=== PATIENT | female | born 1990 | race Caucasian/White ===

== ENCOUNTER 2025-02-06 10:00 | Emergency (ER) | payer MEDICAID, SELFPAY ==
[2025-02-06 10:06] VITALS: BP 117/82; PULSE 108; RESP 18; TEMP 37.2; O2SAT 96
--- NOTE | 2025-02-06 10:18 | XR_ITS ---
Examination: CT abdomen and pelvis without contrast. Coronal 3-D reconstructions. Sagittal 2-D reconstructions. Date and time of exam:February 06, 2025 1239 hours, comparison February 26, 2017 INDICATIONS: Onset generalized abdominal pain and diarrhea beginning 2 days ago CTDI: vol (mGy): 11 DLP: (mGycm): 603 Technique: Axial images of the abdomen have been obtained, 3 mm slice thickness Intravenous contrast material has not been administered. Low dose protocols were performed. One or more of the following dose reduction techniques were used; automated exposure control, adjustment of the mA and/or KV according to patient size, use of iterative reconstruction technique. Findings: Atelectasis in the lower lung zones No visualized liver or splenic lesion, mild bilateral hepatosplenomegaly Gallstones no gallbladder wall thickening No pancreatic mass No renal or ureteral calculi, no hydronephrosis No bowel obstruction No pericecal inflammatory change No diverticulitis Anteverted uterus No adnexal mass Contracted urinary bladder Mildly fluid distended colon IMPRESSION: Cholelithiasis, negative for cholecystitis Mild diffuse nonspecific colitis pattern
--- NOTE | 2025-02-06 10:18 | XR_ITS ---
Examination: Pelvic ultrasound, transabdominal, complete Technique: Transabdominal ultrasound of the pelvis performed using grayscale imaging Date and time of exam: February, 1125 hours INDICATIONS: Severe pelvic pain beginning 2 days ago FINDINGS: Uterus 8.6 cm endometrial stripe 1.7 cm No uterine mass or intrauterine gestation Right ovary 5.5 cm arterial flow small follicles, the largest 17 mm 5 mm calcification Left ovary 2.9 cm arterial flow IMPRESSION: No uterine mass or intrauterine gestation
--- NOTE | 2025-02-06 10:19 | PD.EDRME ---
Rapid Medical Screening Exam RME Arrival date/time: 02/06/25 10:00 34-year-old female presents to the emergency department today for complaints of pelvic pain and lower abdominal pain Chief Complaint: Abdominal Pain Vital signs: Vital Signs Temperature 99.0 F 02/06/25 10:06 Pulse Rate 108 H 02/06/25 10:06 Respiratory Rate 18 02/06/25 10:06 Blood Pressure 117/82 02/06/25 10:06 Pulse Oximetry (%) 96 02/06/25 10:06 Oxygen Delivery Method Room Air 02/06/25 10:06
[2025-02-06 10:30] LABS: Basophils # (Auto) 0.0 Thou/mm3 (0.0-0.2); Basophils % (Auto) 0 % (0-2.5); Eosinophils # (Auto) 0.0 Thou/mm3 (0.0-0.5); Eosinophils % (Auto) 0 % (0-10); Hematocrit 34.1 % (36.0-46.0); Hemoglobin 10.9 g/dL (12.0-16.0); Immature Granulocytes Auto 0.05 Thou/mm3 (0.00-0.00); Lymphocytes # (Auto) 1.2 Thou/mm3 (1.0-4.8); Lymphocytes % (Auto) 12 % (10-50); Mean Corpuscular HGB Conc 32.0 g/dl (31.0-37.0); Mean Corpuscular Hemoglobin 23.5 pg (25.0-35.0); Mean Corpuscular Volume 74 fL (80-100); Monocytes # (Auto) 0.6 Thou/mm3 (0.0-0.8); Monocytes % (Auto) 6 % (0-12); Neutrophils # (Auto) 8.0 Thou/mm3 (1.8-7.7); Neutrophils % (Auto) 81 % (37-80); Nucleated Red Blood Cell # 0.00 Thou/mm3 (0.00-0.00); Nucleated Red Blood Cell % 0 /100 WBC (0); Platelet Count 245 Thou/mm3 (140-440); RDW Standard Deviation 42.4 fL (36.4-46.3); Red Blood Count 4.63 Miln/mm3 (4.00-5.20); White Blood Count 9.9 Thou/mm3 (3.6-11.0)
[2025-02-06 10:49] LABS: Alanine Aminotransferase 18 U/L (10-49); Albumin, Serum 4.2 gm/dL (3.5-5.0); Albumin/Globulin Ratio 1.5 (1.2-2.2); Alkaline Phosphatase 61 U/L (46-116); Anion Gap 9 (7-16); Aspartate Amino Transferase 14 U/L (0-34); BUN/Creatinine Ratio 11 Ratio (12-20); Bilirubin,Total 1.1 mg/dL (0.3-1.2); Blood Urea Nitrogen 8 mg/dL (9-23); Calcium 8.9 mg/dL (8.3-10.6); Calcium (Corrected) 8.9 mg/dL (8.5-10.1); Carbon Dioxide 23.7 mMol/L (20.0-31.0); Chloride 104 mMol/L (98-107); Creatinine (Component) 0.7 mg/dL (0.6-1.3); Globulin 2.8 gm/dL (2.3-3.5); Glucose 105 mg/dL (74-106); Lipase 24 U/L (12-53); Osmolality,Calculated 272 (275-295); Potassium 3.8 mMol/L (3.4-5.1); Sodium 137 mMol/L (136-145); Total Protein 7.0 gm/dL (5.7-8.2); eGFR > 60 See Note
[2025-02-06 10:57] LABS: Collection Type, Urine Clean Catch
[2025-02-06 11:03] LABS: Bacteria,Urine Rare; Bilirubin,Urine Negative (Negative); Blood,Urine Negative (Negative); Clarity,Urine Turbid (Clear/Hazy); Color,Urine Yellow (Lt Yel-Yel); Culture Indicated,Urine Not Indicated; Glucose, Urine Negative (Negative); Ketones,Urine 2+ (Negative); Leukocyte Esterase,Urine Negative (Negative); Nitrite,Urine Negative (Negative); PH,Urine 6.0 (5.0-7.0); Protein,Urine 1+ (Neg - Trace); RBC,Urine 2 /hpf (0-3); Specific Gravity,Urine 1.021 (1.001-1.035); Squamous Epithelial Cell,Urine 4 /hpf (0-5); Urobilinogen,Urine Negative mg/dL (0.0-1.0); WBC,Urine 3 /hpf (0-5)
[2025-02-06 11:50] LABS: HCG Qualitative,Urine Negative
--- NOTE | 2025-02-06 14:42 | EDNOTE_ITS ---
ED Abdominal Pain RME/HPI General Chief Complaint: Abdominal Pain Stated complaint: ABD PAIN Time seen by provider: 02/06/25 10:48 Arrival date/time: 02/06/25 10:00 RME / HPI RME / HPI narrative: 34-year-old female presents to the emergency department today for complaints of pelvic pain and lower abdominal pain. Pain is more on the right upper quadrant, has been going for the last several days, described as crampy, severity moderate . Patient denies any fever denies any vomiting diarrhea constipation. Denies any other complaints no medication was taken prior to ER visit. Related Data Previous Rx's ?Medication ?Instructions ?Recorded ferrous sulfate 325 mg (65 mg 325 mg PO BID 60 days #1 20 tabs 01/06/22 iron) tablet nicotine 14 mg/24 hr daily 14 mg top QDAY 60 days #60 ea 01/06/22 transdermal patch dicyclomine 20 mg tablet 20 mg PO QID PRN abdominal p ain 02/06/25 #30 tabs famotidine 20 mg tablet (Pepcid) 20 mg PO BID #20 tabs 02/06/25 Allergies Allergy/AdvReac Type Severity Reaction Status Date / Time fluconazole Allergy Severe Hives Verified 02/06/25 10:02 Review of Systems Review of Systems Narrative Review of Systems: Review of system reviewed and within normal limits except mentioned in HPI ED Exam Narrative Physical exam: VITAL SIGNS: Reviewed. GENERAL APPEARANCE: Alert and interactive, follows commands, no acute distress, HEAD AND FACE: Non-traumatic. ENT: PERRL, pink conjunctivitis, eyelid no trauma, Mucous membrane moist. NECK: Supple, nontender, no nuchal rigidity. CHEST: No tenderness, no crepitus, no paradoxical movement, no retractions. LUNGS: Clear, well ventilated, symmetric, no rales, no wheezing, no ronchi, no stridor, good breath sounds bilaterally. HEART: Regular rate, regular rhythm, no murmur, no gallops. ABDOMEN: Soft, positive bowel sounds, nondistended, no guarding, right upper quadrant tenderness, no rebound, no masses, RECTAL: Deferred. GENITAL: Deferred. NEUROLOGICAL: Gross motor function intact sensory function intact, Appropriate for age. MUSCULOSKELETAL: low back nontender, full range of motion. EXTREMITIES: Nontender, full range of motion. SKIN: Color pink, dry, no rash, no lacerations, no abrasions, no contusions. LYMPHATICS: Deferred. Course Quality Measures none Orders Category Date Time Status CT abdomen pelvis wo con Stat Exams 02/06/25 10:18 Completed US pelvic complete Stat Exams 02/06/25 10:18 Completed CBC Stat Lab 02/06/25 10:24 Completed Comprehensive Metabolic Panel Stat Lab 02/06/25 10:24 Completed HCG Qualitative,Urine Stat Lab 02/06/25 10:50 Completed Lipase Stat Lab 02/06/25 10:24 Completed UA, C/S IF [Urinalysis, C/S if Indicated] Stat Lab 02/06/25 10:50 Completed Vital Signs Vital signs: Vital Signs Temperature 99.0 F 02/06/25 10:06 Pulse Rate 108 H 02/06/25 10:06 Respiratory Rate 18 02/06/25 10:06 Blood Pressure 117/82 02/06/25 10:06 Pulse Oximetry (%) 96 02/06/25 10:06 Oxygen Delivery Method Room Air 02/06/25 10:06 Abdominal Pain MDM MDM Narrative MDM Narrative:: 34-year-old female presents to the emergency department today for complaints of pelvic pain and lower abdominal pain. Pain is more on the right upper quadrant, has been going for the last several days, described as crampy, severity moderate. Patient denies any fever denies any vomiting diarrhea constipation. Denies any other complaints no medication was taken prior to ER visit. Patient's workup all came back unremarkable no leukocytosis LFTs are normal total bili is normal. Ultrasound of the pelvis came back unremarkable. CT scan of the abdomen pelvis cholelithiasis with no sign of acute cholecystitis. Results discussed with the patient. Patient was advised to follow-up with PCP and for referral to general surgery regarding gallstone. Was advised to avoid triggers of gallstone also. Currently not having any pain prior to discharge. Patient data External records reviewed:: None Clinical information provided by:: patient Social determinants that could affect healthcare access:: none Patient has the following chronic illnesses:: None How is presenting disease/condition affected by chronic disease/condition?: no chronic disease Evaluation data The following diagnostics were reviewed and interpreted by me:: lab results and radiology exam(s) Lab and/or radiology exams considered but not ordered:: None Interpretation Summary: See results MDM Medications / Prescriptions Medications or Prescriptions considered but not ordered:: None Medication administrations:: None Consultations Consultation(s) initiated? (list below): No Diagnosis Differential diagnosis abdominal pain: calculus of kidney and constipation Most likely diagnosis given after review of the tests above:: Gallstone, abdominal pain Admission Indicated Admission indicated?: not indicated Admission Request Was there a request for admission?: No Disposition Plan Disposition Plan: Discharge Discharge Attestation Discharge Attestation: The patient was given an opportunity to ask questions and understood the discharge instructions. Discharge instructions specifically effects, indications for sooner follow up or return to the emergency department, and the expected course of current diagnosis. Patient condition: Stable Discharge Plan Plan Patient Disposition: HOME (Self Care) Discharge Disposition comment: Stable Prescriptions/Referrals Prescriptions/Med Rec: New dicyclomine 20 mg tablet 20 mg PO QID PRN (Reason: abdominal pain) Qty: 30 0RF famotidine [Pepcid] 20 mg tablet 20 mg PO BID Qty: 20 0RF No Action nicotine 14 mg/24 hr Patch 24 Hour 14 mg top QDAY 60 Days Qty: 60 2RF ferrous sulfate 325 mg (65 mg iron) tablet 325 mg PO BID 60 Days Qty: 120 2RF Referrals: Wesley Ivey MD [Primary Care Provider, Family Practice] - In 1 week Problem List Clinical Impression: Abdominal pain, Gallstone Patient/Caregiver Discharge Instructions Education Materials: Treating Gallstones Additional Instructions: Thank you for the opportunity for serving you today. You are stable for discharged . You are advised to: Follow-up with your PCP in 1 to 2 days and asked for referral to general surgery regarding your gallstone Return to ED for worsening of symptoms Increase oral fluids Take medication as prescribed Please avoid eating fried, greasy, fried food. Please avoid drinking milk. Print Language: Tajik Stand Alone Forms: Medical Referral Source Award Info., Work/School Release, Patient Portal Info Letter WESTLEY/TAYE Supervising Physician WESTLEY/TAYE Supervising Physician: MD Arron
[2025-02-06 14:44] VITALS: BP 117/83; PULSE 99; RESP 16; TEMP 36.8; O2SAT 95
[2025-02-06] MEDS: KETOROLAC INJ 30 MG/ML VIAL IM (15:00)
== END 2025-02-06 15:30 | disposition home or self-care (01) ==
PROVIDERS: Nurse Practitioner Primary Care; Emergency Provider Family Medicine; PCP Family Medicine
DX: K80.20 Calculus of gallbladder without cholecystitis without obstruction (principal)
CPT/HCPCS: 36415; 74176; 76856; 80053; 81001; 81025; 83690; 85025; 96372; 99284; J1885